=== PATIENT | male | born 1965 | race Caucasian/White ===

== ENCOUNTER → 2017-04-28 | Outpatient (RCR) | payer OTHER, SELFPAY | LOC: PT 03-30 15:10 | PROVIDERS: Visit Provider Physical Medicine & Rehabilitation | DX: M79.1 Myalgia (principal); G44.89 Other headache syndrome | CPT/HCPCS: 97010; 97014; 97035; 97110; 97112; G0283 ==

== ENCOUNTER 2017-06-21 10:54 | Outpatient (CLI) | payer MEDICAID, SELFPAY ==
[2017-06-21] VITALS (21 sets, daily range): BP systolic 113–141; BP diastolic 55–85; PULSE 105–118; RESP 18–20; TEMP 36.7–37.1; O2SAT 94–99; BMI 45.8
[2017-06-21 11:54] LABS: Basophils % 0.2 % (0.1-2.0); Eosinophils # 0.1 K/mm3 (0.0-0.4); Eosinophils % 0.4 % (0.1-12.0); Lymphocytes # 0.7 K/mm3 (0.7-4.5); Lymphocytes % 6.9 K/mm3 (10-50); Mean Corpuscular HGB Conc 29.5 g/dL (31.8-35.4); Mean Corpuscular Hemoglobin 23.5 pg (27.0-31.2); Mean Corpuscular Volume 79.6 fl (80-94); Mean Platelet Volume 9.1 fl (7.4-10.4); Monocytes # 0.6 K/mm3 (0.1-1.0); Monocytes % 5.9 % (1.7-9.3); Neutrophils % 86.4 % (37.0-80.0); Platelet Count 88 K/mm3 (142-424); Red Blood Count 2.62 M/mm3 (4.60-6.20); Red Cell Distribution Width 17.6 % (11.5-17.5); White Blood Count 10.4 K/mm3 (4.8-10.8)
[2017-06-21 12:07] LABS: Hematocrit 20.9 % (42.0-52.0); Hemoglobin 6.2 g/dL (14.1-18.0)
[2017-06-21 12:08] LABS: MANUAL DIFFERENTIAL MANUAL DIFFERENTIAL (MANUAL DIFF)
[2017-06-21 13:10] LABS: Lymphocytes % 9 % (10-50); Monocytes % 1 % (2-9); Neutrophils % 90 % (42-76); Total Cells Counted 100
[2017-06-21 13:12] LABS: Hypochromasia 2+; Platelet Estimate Slight Decrease
[2017-06-21 18:03] LABS: Hematocrit 24.8 % (42.0-52.0)
--- NOTE | 2017-06-21 18:11 | PC.NURSE ---
1 hour post infusion h&h drawn and sent to lab
[2017-06-21 18:18] LABS: Hemoglobin 7.8 g/dL (14.1-18.0)
--- NOTE | 2017-06-21 18:29 | PC.NURSE ---
Dr vigil notified of critical values, no new orders received. Dr Vigil stated patient was fine to be discharged home-[id number] Hgb-7.8 Hct-24.8 post infusion H&H
== END 2017-06-21 17:55 | disposition home or self-care (01) ==
PROVIDERS: PCP Internal Medicine; Visit Provider Internal Medicine
DX: D64.9 Anemia, unspecified (principal)
CPT/HCPCS: 36430; 85007; 85014; 85018; 85025; 86850; P9016

== ENCOUNTER 2017-06-27 10:30 | Outpatient (CLI) | payer MEDICAID, SELFPAY ==
[2017-06-27] VITALS (19 sets, daily range): BP systolic 128–158; BP diastolic 67–83; PULSE 66–116; RESP 18–20; TEMP 35.9–37.2; O2SAT 96–99; BMI 47.2
[2017-06-27 11:24] LABS: Hematocrit 24.3 % (42.0-52.0)
[2017-06-27 11:27] LABS: Hemoglobin 7.1 g/dL (14.1-18.0)
--- NOTE | 2017-06-27 14:01 | PC.NURSE ---
pt eating ch. sandwich and chips, tolerating well
[2017-06-27 17:35] LABS: Hematocrit 28.1 % (42.0-52.0)
[2017-06-27 17:42] LABS: Hemoglobin 8.7 g/dL (14.1-18.0)
== END 2017-06-27 17:43 | disposition home or self-care (01) ==
LOC: INF 13:33
PROVIDERS: PCP Internal Medicine; Visit Provider Internal Medicine
DX: D64.9 Anemia, unspecified (principal); K74.60 Unspecified cirrhosis of liver
CPT/HCPCS: 36430; 85014; 85018; 86850; P9016

== ENCOUNTER → 2017-07-05 09:50 | Outpatient (REF) | payer MEDICAID, SELFPAY ==
[2017-07-05 10:02] LABS: Basophils # 0.1 K/mm3 (0-0.2); Basophils % 0.9 % (0.1-2.0); Eosinophils # 0.1 K/mm3 (0.0-0.4); Eosinophils % 1.8 % (0.1-12.0); Hematocrit 30.5 % (42.0-52.0); Hemoglobin 9.2 g/dL (14.1-18.0); Lymphocytes # 0.8 K/mm3 (0.7-4.5); Mean Corpuscular HGB Conc 30.2 g/dL (31.8-35.4); Mean Corpuscular Hemoglobin 26.1 pg (27.0-31.2); Mean Corpuscular Volume 86.4 fl (80-94); Mean Platelet Volume 9.6 fl (7.4-10.4); Monocytes # 0.5 K/mm3 (0.1-1.0); Monocytes % 9.9 % (1.7-9.3); Neutrophils # 3.6 K/mm3 (1.8-7.8); Neutrophils % 71.4 % (37.0-80.0); Red Blood Count 3.52 M/mm3 (4.60-6.20); Red Cell Distribution Width 23.7 % (11.5-17.5); White Blood Count 5.1 K/mm3 (4.8-10.8)
[2017-07-05 10:50] LABS: Platelet Count 87 K/mm3 (142-424)
== END ==
LOC: LAB 09:50
PROVIDERS: Visit Provider Internal Medicine
DX: K70.30 Alcoholic cirrhosis of liver without ascites (principal); K70.10 Alcoholic hepatitis without ascites; K72.90 Hepatic failure, unspecified without coma; D64.9 Anemia, unspecified
CPT/HCPCS: 36415; 85025

== ENCOUNTER → 2017-07-19 12:59 | Outpatient (CLI) | payer MEDICAID, SELFPAY | PROVIDERS: PCP Internal Medicine; Visit Provider Internal Medicine | DX: M79.605 Pain in left leg (principal); M79.604 Pain in right leg; R60.0 Localized edema | CPT/HCPCS: 93970 ==

== ENCOUNTER → 2017-08-07 11:26 | Outpatient (CLI) | payer MEDICAID, SELFPAY ==
[2017-08-07 11:41] LABS: Basophils % 0.5 % (0.1-2.0); Eosinophils # 0.1 K/mm3 (0.0-0.4); Hematocrit 38.2 % (42.0-52.0); Hemoglobin 11.8 g/dL (14.1-18.0); Lymphocytes # 0.9 K/mm3 (0.7-4.5); Lymphocytes % 20.1 K/mm3 (10-50); Mean Corpuscular HGB Conc 30.8 g/dL (31.8-35.4); Mean Corpuscular Hemoglobin 30.7 pg (27.0-31.2); Mean Corpuscular Volume 99.9 fl (80-94); Mean Platelet Volume 8.6 fl (7.4-10.4); Monocytes # 0.5 K/mm3 (0.1-1.0); Monocytes % 11.3 % (1.7-9.3); Neutrophils # 3.2 K/mm3 (1.8-7.8); Neutrophils % 67.1 % (37.0-80.0); Platelet Count 78 K/mm3 (142-424); Red Blood Count 3.82 M/mm3 (4.60-6.20); White Blood Count 4.7 K/mm3 (4.8-10.8)
[2017-08-07 12:22] LABS: Alanine Aminotransferase 38 U/L (12-78); Albumin Level 2.7 gm/dL (3.4-5.0); Albumin/Globulin Ratio 0.5 (1.1-1.8); Alkaline Phosphatase 149 U/L (46-116); Anion Gap 12.6 mEq/L (5-15); Aspartate Amino Transferase 91 U/L (15-37); Bilirubin,Total 3.2 mg/dL (0.2-1.0); Blood Urea Nitrogen 8 mg/dL (7-18); Carbon Dioxide 27 mmol/L (21.0-32.0); Chloride 102 mmol/L (98-107); Estimated Glomerular Filt Rate 102 ml/min (>60); GFR (African American) 123 ML/MIN (>60); Globulin 5.3 gm/dl (1.3-3.2); Potassium 3.6 mmoL/L (3.5-5.1); Sodium 138 mmol/L (136-145)
[2017-08-07 12:29] LABS: Glucose 124 mg/dL (74-106)
== END ==
PROVIDERS: Visit Provider Internal Medicine
DX: K74.60 Unspecified cirrhosis of liver (principal); R60.9 Edema, unspecified; I10 Essential (primary) hypertension; D64.9 Anemia, unspecified
CPT/HCPCS: 36415; 80053; 85025

== ENCOUNTER → 2017-10-04 10:09 | Outpatient (CLI) | payer MEDICAID, SELFPAY ==
[2017-10-04 10:38] LABS: Basophils # 0.1 K/mm3 (0-0.2); Basophils % 0.9 % (0.1-2.0); Eosinophils # 0.1 K/mm3 (0.0-0.4); Eosinophils % 2.6 % (0.1-12.0); Hematocrit 44.5 % (42.0-52.0); Hemoglobin 14.2 g/dL (14.1-18.0); Lymphocytes # 0.8 K/mm3 (0.7-4.5); Lymphocytes % 17.1 K/mm3 (10-50); Mean Corpuscular HGB Conc 31.9 g/dL (31.8-35.4); Mean Corpuscular Volume 106.4 fl (80-94); Mean Platelet Volume 8.7 fl (7.4-10.4); Monocytes # 0.5 K/mm3 (0.1-1.0); Monocytes % 9.3 % (1.7-9.3); Neutrophils # 3.5 K/mm3 (1.8-7.8); Neutrophils % 70.1 % (37.0-80.0); Platelet Count 62 K/mm3 (142-424); Red Blood Count 4.18 M/mm3 (4.60-6.20); Red Cell Distribution Width 15.2 % (11.5-17.5); White Blood Count 4.9 K/mm3 (4.8-10.8)
[2017-10-04 10:44] LABS: Ammonia 42 umol/L (19-54)
[2017-10-04 11:58] LABS: Hemoglobin A1C 5.1 % (0.0-7.0)
[2017-10-04 12:03] LABS: Alanine Aminotransferase 58 U/L (12-78); Albumin Level 2.8 gm/dL (3.4-5.0); Albumin/Globulin Ratio 0.6 (1.1-1.8); Alkaline Phosphatase 130 U/L (46-116); Anion Gap 11.1 mEq/L (5-15); Aspartate Amino Transferase 111 U/L (15-37); Bilirubin,Total 4.7 mg/dL (0.2-1.0); Blood Urea Nitrogen 8 mg/dL (7-18); Carbon Dioxide 30 mmol/L (21.0-32.0); Chloride 103 mmol/L (98-107); Chol/HDL Ratio 3.9 (1-3.5); Cholesterol 180 mg/dL (140-200); Creatinine,Serum 0.85 mg/dL (0.70-1.30); Estimated Glomerular Filt Rate 95 ml/min (>60); GFR (African American) 115 ML/MIN (>60); Globulin 4.7 gm/dl (1.3-3.2); Glucose 117 mg/dL (74-106); HDL Cholesterol 46 mg/dL (27-67); LDL Cholesterol 119 mg/dL (0-130); Potassium 4.1 mmoL/L (3.5-5.1); Sodium 140 mmol/L (136-145); Total Protein,Serum 7.5 gm/dL (6.4-8.2); Triglycerides 75 mg/dL (30-200); VLDL Cholesterol 15 mg/dL (0-40)
== END ==
PROVIDERS: Visit Provider Internal Medicine
DX: K74.60 Unspecified cirrhosis of liver (principal); K72.90 Hepatic failure, unspecified without coma; E11.42 Type 2 diabetes mellitus with diabetic polyneuropathy; I10 Essential (primary) hypertension; E78.5 Hyperlipidemia, unspecified; D64.9 Anemia, unspecified
CPT/HCPCS: 36415; 80053; 80061; 82140; 83036; 85025

== ENCOUNTER → 2017-12-08 10:28 | Outpatient (CLI) | payer MEDICAID, SELFPAY ==
--- NOTE | 2017-12-08 10:47 | XR_ITS ---
XR chest 2V HISTORY: ITS.REASON: DYSPNEA,KARRIE II DM,CIRRHROSIS ORDERING PHYSICIAN: Reuben Holder PATIENT AGE: 52 years COMPARISON: None FINDINGS: There is mild cardiomegaly without failure. No lobar consolidation or collapse evident. No acute bony anomalies. IMPRESSION: Cardiomegaly otherwise
[2017-12-08 10:52] LABS: Basophils % 0.6 % (0.1-2.0); Eosinophils # 0.1 K/mm3 (0.0-0.4); Eosinophils % 2.5 % (0.1-12.0); Hematocrit 43.3 % (42.0-52.0); Hemoglobin 14.1 g/dL (14.1-18.0); Lymphocytes # 0.7 K/mm3 (0.7-4.5); Lymphocytes % 13.3 K/mm3 (10-50); Mean Corpuscular HGB Conc 32.5 g/dL (31.8-35.4); Mean Corpuscular Volume 107.5 fl (80-94); Mean Platelet Volume 8.1 fl (7.4-10.4); Monocytes # 0.4 K/mm3 (0.1-1.0); Monocytes % 8.6 % (1.7-9.3); Neutrophils # 3.9 K/mm3 (1.8-7.8); Neutrophils % 75.1 % (37.0-80.0); Platelet Count 80 K/mm3 (142-424); Red Blood Count 4.03 M/mm3 (4.60-6.20); Red Cell Distribution Width 14.7 % (11.5-17.5); White Blood Count 5.2 K/mm3 (4.8-10.8)
[2017-12-08 11:00] LABS: Hemoglobin A1C 5.3 % (0.0-7.0)
[2017-12-08 11:05] LABS: Alanine Aminotransferase 50 U/L (12-78); Albumin Level 2.6 gm/dL (3.4-5.0); Albumin/Globulin Ratio 0.5 (1.1-1.8); Alkaline Phosphatase 140 U/L (46-116); Anion Gap 10.2 mEq/L (5-15); Aspartate Amino Transferase 81 U/L (15-37); Bilirubin,Total 3.9 mg/dL (0.2-1.0); Blood Urea Nitrogen 9 mg/dL (7-18); Calcium 8.8 mg/dL (8.5-10.1); Carbon Dioxide 28 mmol/L (21.0-32.0); Chloride 101 mmol/L (98-107); Estimated Glomerular Filt Rate 70 ml/min (>60); GFR (African American) 85 ML/MIN (>60); Globulin 4.9 gm/dl (1.3-3.2); Glucose 182 mg/dL (74-106); Potassium 4.2 mmoL/L (3.5-5.1); Sodium 135 mmol/L (136-145); Total Protein,Serum 7.5 gm/dL (6.4-8.2)
[2017-12-08 11:08] LABS: Ammonia 54 umol/L (19-54)
== END ==
PROVIDERS: Visit Provider Internal Medicine
DX: R06.09 Other forms of dyspnea (principal); E11.42 Type 2 diabetes mellitus with diabetic polyneuropathy; K74.60 Unspecified cirrhosis of liver; I10 Essential (primary) hypertension
CPT/HCPCS: 36415; 71046; 80053; 82140; 83036; 85025

== ENCOUNTER → 2017-12-14 12:54 | Outpatient (CLI) | payer MEDICAID, SELFPAY ==
--- NOTE | 2017-12-14 13:15 | CA_ITS ---
PROCEDURE: 2-D M-mode and color Doppler study INDICATIONS FOR THE TEST: Chest pain COPD Heart Murmur Tobacco Smoking Palpitations+ Fatigue Syncope Edema+ Hypertension Diabetes Mellitus Rheumatic Fever SOB [place]+Obesity+Hyperlipidemia Family History HD Additional History PATIENT INFORMATION HEIGHT: 66 WEIGHT: 250 GENDER: Male B/P: 146/89 2-D/M-MODE INTERPRETATION: 2-D MEASUREMENTS OBSERVED VALUES IN CMS Right Ventricular Dimension (RVDd) 2.9 Interventricular Septum (Thickness)(IVsd) 1.0 Left Ventricular Internal Dimensions(LVIDd) 5.7 Left Ventricular Posterior Wall (Thickness)(LVPWd) 1.0 Aortic Root 3.3 Aortic Cusp Separation 2.2 Left Atrial Dimensions (LAD) 4.1 2D 1. Technically difficult study because of the patient's factor and poor acoustic windows 2. The left atrium is mildly enlarged, left ventricle is normal size, visually estimated ejection fraction 55% with no obvious regional wall motion abnormality. 3. The right atrium and right ventricle are mildly enlarged with normal contractility. 4. The mitral and tricuspid valve leaflets are grossly normal. 5. The aortic valve is minimally thickened and fibrosed. 6. No significant pericardial effusion noted. DOPPLER INTERROGATION: Doppler interrogation of the aortic, mitral and tricuspid valvular presence of mild mitral and tricuspid regurgitation, tricuspid and jet velocity is insufficient for calculation of the right ventricular systolic pressure, diastolic parameters are inconclusive. CONCLUSION: 1. Mildly enlarged left atrium, normal left ventricular size, visually estimated ejection fraction 55% with no obvious regional wall motion abnormality, diastolic parameters are inconclusive. 2. Mildly enlarged right ventricle with normal contractility. 3. Mild mitral and tricuspid regurgitation 4. No significant pericardial effusion noted.
[2017-12-14 14:12] VITALS: PULSE 70
== END ==
PROVIDERS: PCP Internal Medicine; Visit Provider Internal Medicine
DX: R06.09 Other forms of dyspnea (principal); R60.0 Localized edema
CPT/HCPCS: 93306; 94060; 94640; 94727; 94729

== ENCOUNTER → 2018-01-05 12:21 | Outpatient (CLI) | payer MEDICAID, SELFPAY ==
[2018-01-05 13:11] LABS: INR 1.17 (0.9-1.1)
[2018-01-05 13:15] LABS: Basophils % 0.6 % (0.1-2.0); Eosinophils # 0.1 K/mm3 (0.0-0.4); Eosinophils % 2.6 % (0.1-12.0); Hematocrit 44.4 % (42.0-52.0); Hemoglobin 14.5 g/dL (14.1-18.0); Lymphocytes # 0.7 K/mm3 (0.7-4.5); Lymphocytes % 12.1 K/mm3 (10-50); Mean Corpuscular HGB Conc 32.7 g/dL (31.8-35.4); Mean Corpuscular Hemoglobin 34.9 pg (27.0-31.2); Mean Corpuscular Volume 106.7 fl (80-94); Mean Platelet Volume 7.9 fl (7.4-10.4); Monocytes # 0.4 K/mm3 (0.1-1.0); Monocytes % 7.6 % (1.7-9.3); Neutrophils # 4.3 K/mm3 (1.8-7.8); Neutrophils % 77.1 % (37.0-80.0); Platelet Count 61 K/mm3 (142-424); Red Blood Count 4.17 M/mm3 (4.60-6.20); Red Cell Distribution Width 14.1 % (11.5-17.5); White Blood Count 5.6 K/mm3 (4.8-10.8)
[2018-01-05 13:46] LABS: Alanine Aminotransferase 51 U/L (12-78); Albumin Level 2.9 gm/dL (3.4-5.0); Albumin/Globulin Ratio 0.7 (1.1-1.8); Alkaline Phosphatase 149 U/L (46-116); Aspartate Amino Transferase 78 U/L (15-37); Bilirubin,Total 5.4 mg/dL (0.2-1.0); Blood Urea Nitrogen 8 mg/dL (7-18); Calcium 8.6 mg/dL (8.5-10.1); Carbon Dioxide 29 mmol/L (21.0-32.0); Chloride 105 mmol/L (98-107); Estimated Glomerular Filt Rate 102 ml/min (>60); GFR (African American) 123 ML/MIN (>60); Globulin 4.4 gm/dl (1.3-3.2); Glucose 108 mg/dL (74-106); Sodium 141 mmol/L (136-145); Total Protein,Serum 7.3 gm/dL (6.4-8.2)
== END ==
PROVIDERS: PCP Internal Medicine; Visit Provider Internal Medicine Gastroenterology
DX: K70.30 Alcoholic cirrhosis of liver without ascites (principal)
CPT/HCPCS: 36415; 80053; 82105; 85025; 85610

== ENCOUNTER 2018-03-23 17:26 | Inpatient (IN) ==
--- NOTE | 2018-03-23 17:39 | Emergency Department Note ---
ED Disposition Clinical Impression: Alcoholism Alcohol intoxication Qualifiers: Complication of substance-induced condition: with unspecified complication Qualified Code(s): F10.929 - Alcohol use, unspecified with intoxication, unspecified Alcoholic cirrhosis Qualifiers: Ascites presence: unspecified Qualified Code(s): K70.30 - Alcoholic cirrhosis of liver without ascites Rib contusion Qualifiers: Encounter type: initial encounter Laterality: right Qualified Code(s): S20.211A - Contusion of right front wall of thorax, initial encounter Disposition: Still a Patient Condition on Discharge: Serious Referrals: Provider,Referral, [Referring] - - Critical Care Critical Care Time: No Attestation: On , the high probability of a clinically significant, sudden or life threatening deterioration of the following system(s) required my full and direct attention, intervention and personal management. The time I documented below is in addition to time spent performing reported procedures but includes the following listed in this critical care notation. Medical Decision Making - Marcus Inquiry Pt receiving controlled substance: No Vital Signs: 03/23/18 17:26 03/23/18 18:09 03/23/18 19:17 Temperature 98.2 F Temperature Source Oral Pulse Rate [Right Brachial] 111 H 102 H 111 H Respiratory Rate 22 22 Blood Pressure [Right Arm] 112/69 119/80 129/75 Blood Pressure Mean [Right Arm] 83 93 93 Blood Pressure Source [Right Arm] Automatic Cuff Automatic Cuff Automatic Cuff Blood Pressure Position [Right Arm] Supine Supine Sitting 02 Sat by Pulse Oximetry 94 L 95 93 L Oxygen Delivery Method Room Air Room Air Room Air Oxygen Flow Rate (LPM) 03/23/18 19:21 Temperature Temperature Source Pulse Rate [Right Brachial] Respiratory Rate Blood Pressure [Right Arm] Blood Pressure Mean [Right Arm] Blood Pressure Source [Right Arm] Blood Pressure Position [Right Arm] 02 Sat by Pulse Oximetry 93 L Oxygen Delivery Method Room Air Oxygen Flow Rate (LPM) 2 - Lab Data Lab Results 03/23/18 17:35: WBC 8.4, RBC 3.87 L, Hgb 13.3 L, Hct 41.6 L, MCV 107.4 H, MCH 34.3 H, MCHC 32.0, RDW 15.8, Plt Count 60 L, MPV 8.4, Neut % (Auto) 84.4 H, Lymph % (Auto) 7.6 L, Cross % (Auto) 6.9, Eos % (Auto) 0.7, Baso % (Auto) 0.5, Neut # (Auto) 7.1, Lymph # (Auto) 0.6 L, [place] # (Auto) 0.6, Eos # (Auto) 0.1, Baso # (Auto) 0.0 03/23/18 17:35: PT 13.8 H, INR 1.35 H 03/23/18 17:35: Sodium 141, Potassium 3.6, Chloride 104, Carbon Dioxide 29, Anion Gap 11.6, BUN 7, Creatinine 0.72, Estimated Creat Clear 192, Estimated GFR 115, Est GFR ( Amer) 139, Glucose 119 H, Calcium 7.5 L, Total Bilirubin 10.3 H, Direct Bilirubin 7.1 H, Indirect Bilirubin 3.2 H, AST 266 H, ALT 92 H, Alkaline Phosphatase 271 H, Total Protein 7.6, Albumin 2.3 L, Lipase 182, Salicylates < 0.2 L, Acetaminophen 0 L, Plasma/Serum Alcohol 341 H* 03/23/18 17:35: Ammonia 62 H 03/23/18 17:35: Total Creatine Kinase 931 H*, CK-MB (CK-2) 18.9 H*, CK-MB (CK-2) Rel Index 2.0, Troponin I < 0.02 03/23/18 17:38: B-Natriuretic Peptide 37 Result diagrams: 03/23/18 17:35 03/23/18 17:35 Orders (Tests/Meds): ED MEDICATIONS Generic Name Dose Route Start Last Admin Trade Name Freq PRN Reason Stop Dose Admin Multivitamins 10 ml/ Thiamine 1,015 mls @ 150 mls/hr 03/23/18 17:45 03/23/18 19:16 HCl 100 mg/ Magnesium Sulfate IV 03/24/18 00:30 150 mls/hr 2 gm/ Lactated Ringer's .[id number] SHERWIN Administration Discontinued Medications Generic Name Dose Route Start Last Admin Trade Name Freq PRN Reason Stop Dose Admin Folic Acid 1 mg 03/23/18 17:42 03/23/18 19:16 Folic Acid 1mg Tablet PO 03/23/18 17:43 1 mg ONCE ONE Administration Oxazepam 30 mg 03/23/18 19:54 Serax 15mg Capsule PO 03/23/18 19:55 ONCE ONE ORDERS Category Date Time Status CT head/brain wo con Stat Cat Scan 03/23/18 17:40 Taken XR chest portable Stat Exams 03/23/18 17:40 Taken XR ribs RT 2V Stat Exams 03/23/18 17:53 Taken Drug Screen,Urine Stat Lab 03/23/18 17:41 Ordered Urinalysis and Microscopic Stat Lab 03/23/18 17:41 Ordered - Radiology Data #1 Image(s): Chest (+ Ribs) Image Reviewed: Yes I reviewed the patient's radiology image Irregular cortex of right seventh rib anteriorly, but does not appear acute. Cephalization of vasculature. No effusions. No pneumothorax seen. - CT Data CT Scan: Head Time Received: 19:[address] Reviewed: Yes: I have viewed the radiologist's interpretation Findings Narrative: CT scan interpreted by [facility] radiologist. Faxed report received and reviewed: No acute intracranial findings. Probable chronic paranasal sinusitis without air-fluid levels. Possible chronic left mastoid effusion unchanged since . - ECG Data Tracing #1 EKG interpreted by Michael Watters MD: Rhythm: sinus tachycardia Rate: 110 Charlo: Left Ectopy: none Conduction: Right bundle branch block ST Segment Changes: none T Wave Changes: none Q Waves: none No evidence of acute ischemia or injury Baseline artifact and wander present, but I consider the EKG adequate for accurate interpretation. - Physician Consults Physician Consulted: David Vigil Time: 19:40 Reason -: Admission Comment/Response: Agrees to admit the patient to the hospital. We discussed the patient's clinical information, including history, exam, laboratory and radiology results and ED course. Per hospital procedure, I will write temporary bridge inpatient orders on the patient. Specific orders requested by the admitting physician: Withdrawal protocol, first dose of oxazepam 30 mg in the emergency department General Adult HPI - General Stated complaint: AMS Time Seen by Provider: 03/23/18 17:39 - History of Present Illness HPI narrative: Brought in by son. History obtained from his son primarily as the patient is a poor historian. The patient lives alone, he has a history of alcoholic cirrhosis. He still drinks. His son believes that he is seen at [facility] a couple of times a month. Patient states the last time he had a drink of alcohol was 2 days ago. Son has not been able to get hold of him for 2 days so therefore went to his house today. He was just about to break into her window when the patient came to the door. He was ambulatory. His son says that he was more unsteady on his feet than usual, however. Also seems more confused than usual. Apparently has fallen a couple of times recently. Complains of pain in his back and has a purple ecchymosis in his right infrascapular area which he locates as the site of pain. He is normally jaundiced, but son states that he looks more jaundiced than usual. - Related Data Home Medications Medication Instructions Recorded Confirmed Aspirin [Aspir-Low] 81 mg PO DAILY 09/09/17 09/09/17 Ferrous Sulfate 325 mg PO DAILY 09/09/17 03/23/18 Fluticasone Propionate [Flonase 2 spr NS DAILY 09/09/17 09/09/17 50mcg nasal spray 16gm] Furosemide [Furosemide 40MG tAB] 40 mg PO DAILY 09/09/17 03/23/18 Lactulose [Lactulose 10gm/15ml 10 gm PO DAILY 09/09/17 09/09/17 Oral Soln] Magnesium Oxide [Mag-Ox 400mg Tab] 400 mg PO DAILY 09/09/17 03/23/18 Oxazepam [Serax 10mg Capsule] 10 mg PO TID PRN 09/09/17 03/23/18 Pantoprazole Sodium [Pantoprazole 40 mg PO DAILY 09/09/17 03/23/18 20mg Tab] Sertraline HCl 25 mg PO DAILY 09/09/17 03/23/18 Spironolactone [Spironolactone 100 mg PO BID 09/09/17 03/23/18 25mg Tab] Albuterol Sulfate [Albuterol HFA 2 puffs INHALATION Q6HP PRN 03/23/18 03/23/18 Inhaler] Montelukast Sodium 5 mg PO DAILY 03/23/18 03/23/18 Allergies Allergy/AdvReac Type Severity Reaction Status Date / Time No Known Allergies Allergy Verified 12/11/17 08:42 [facility] History I have reviewed the patient's past medical history: Yes - Social History Smoking Status: Never smoker Alcohol Intake: current Alcohol Intake Frequency:: 0-2 drinks per day ROS Obtained: Yes unobtainable due to mental status Physical Exam - General General appearance: alert, in no apparent distress Comment: Jaundiced, scleral icterus. Tremulous. Sweet fruity odor to breath. - Head Head exam: atraumatic, normocephalic - Eye Eye exam: Present: PERRL, EOMI, jaundice - ENT ENT exam: Present: mucous membranes moist - Neck Neck exam: Present: full ROM. Absent: tenderness - Chest Chest inspection: Present: symmetric chest wall rise - Respiratory Respiratory exam: Present: normal lung sounds bilaterally. Absent: respiratory distress - Cardiovascular Cardiovascular exam: Present: normal rhythm, tachycardia, normal heart sounds - Abdominal Exam Abdominal exam: Present: soft. Absent: distention, tenderness - Extremities Exam Extremities exam: Present: other (Severe venous stasis changes pretibial aspect of lower leg bilaterally with stasis edema) - Back Exam Back 1 view image: 1 - Tender, purple ecchymosis - Neurological Exam Neurological exam: Present: alert, CN II-XII intact, other (Oriented to person and place). Absent: motor sensory deficit - Skin Skin exam: Present: warm, dry
[2018-03-23 18:06] LABS: Basophils % 0.5 % (0.1-2.0); Eosinophils # 0.1 K/mm3 (0.0-0.4); Eosinophils % 0.7 % (0.1-12.0); Hematocrit 41.6 % (42.0-52.0); Hemoglobin 13.3 g/dL (14.1-18.0); Lymphocytes # 0.6 K/mm3 (0.7-4.5); Lymphocytes % 7.6 % (10-50); Mean Corpuscular Hemoglobin 34.3 pg (27.0-31.2); Mean Corpuscular Volume 107.4 fl (80-94); Mean Platelet Volume 8.4 fl (7.4-10.4); Monocytes # 0.6 K/mm3 (0.1-1.0); Monocytes % 6.9 % (1.7-9.3); Neutrophils # 7.1 K/mm3 (1.8-7.8); Neutrophils % 84.4 % (37.0-80.0); Platelet Count 60 K/mm3 (142-424); Red Blood Count 3.87 M/mm3 (4.60-6.20); Red Cell Distribution Width 15.8 % (11.5-17.5); White Blood Count 8.4 K/mm3 (4.8-10.8)
[2018-03-23 18:10] LABS: INR 1.35 (0.9-1.1); Prothrombin Time 13.8 seconds (9.4-11.8)
[2018-03-23 18:19] LABS: Alanine Aminotransferase 92 U/L (12-78); Albumin Level 2.3 gm/dL (3.4-5.0); Alkaline Phosphatase 271 U/L (46-116); Anion Gap 11.6 mEq/L (5-15); Aspartate Amino Transferase 266 U/L (15-37); Bilirubin,Direct 7.1 mg/dL (0.0-0.2); Bilirubin,Indirect 3.2 mg/dL (0.0-0.9); Bilirubin,Total 10.3 mg/dL (0.2-1.0); Blood Urea Nitrogen 7 mg/dL (7-18); Calcium 7.5 mg/dL (8.5-10.1); Carbon Dioxide 29 mmol/L (21.0-32.0); Chloride 104 mmol/L (98-107); Glucose 119 mg/dL (74-106); Lipase 182 u/L (73-393); Potassium 3.6 mmoL/L (3.5-5.1); Sodium 141 mmol/L (136-145); Total Protein,Serum 7.6 gm/dL (6.4-8.2)
[2018-03-23 18:24] LABS: Creatine Kinase 931 U/L (39-308)
[2018-03-23 18:30] LABS: Ethyl Alcohol 341 mg/dL (0-99)
[2018-03-23 18:32] LABS: Acetaminophen 0 ug/mL (10-30); Salicylate < 0.2 mg/dL (2.8-20.0)
[2018-03-23 21:01] LABS: Phosphorous 2.6 mg/dL (2.4-4.9)
[2018-03-24 09:29] LABS: INR 1.42 (0.9-1.1); Prothrombin Time 14.5 seconds (9.4-11.8)
[2018-03-24 09:32] LABS: Albumin Level 1.8 gm/dL (3.4-5.0); Albumin/Globulin Ratio 0.4 (1.1-1.8); Anion Gap 11.7 mEq/L (5-15); Bilirubin,Total 10.4 mg/dL (0.2-1.0); Calcium 7.2 mg/dL (8.5-10.1); Globulin 4.3 gm/dl (1.3-3.2); Total Protein,Serum 6.1 gm/dL (6.4-8.2)
[2018-03-24 09:33] LABS: Potassium 3.7 mmoL/L (3.5-5.1)
--- NOTE | 2018-03-24 11:35 | History & Physical Report ---
*Admission Date: 03/23/18 *Chief complaint: Alcohol withdrawal, intoxication *History of present illness: Mr. Camacho is a 52-year-old male who was brought in by his nephew due to concern for alcohol intoxication and withdrawal. Past medical history for CHF and diabetes. Patient reports he drinks approximately 12 beers a day however blood alcohol level on presentation approximately 350 concerning for significantly larger oral intake daily. She will assessment in the ER with concern for withdrawal symptoms, intoxication, liver injury, elevated CK. Initiated withdrawal protocol and received a rally pack, IV fluids, loading dose of oxazepam. Admitted to medicine for further management. Patient this morning eating breakfast on assessment. Reports his an alcoholic that is struggled with recovery in the past currently in AA however fell off the wagon about 6 months ago. Has never had withdrawal symptoms, seizures, DTs per his report. Denies chest pain, palpitations, shortness of breath. Reports some mild confusion. Denies any abdominal pain or nausea. Noted to be quite shaky during interview. Review of patient's CIWA scores overnight have scores of 11 and 14. Currently receiving scheduled oxazepam of 30 mg however still having impressive scores. [facility] History I have reviewed the patient's past medical history: Yes Medical History: Reports:: Congestive Heart Failure, Diabetes Mellitus Type 2 Denies:: Cancer, Diabetes Mellitus Type 1, Internal Pacemaker, MRSA Other Surgeries: No: Pacemaker Amputation: No Fractures: No - *Social History Educational Level: Completed High School Smoking Status: Never smoker Alcohol Intake: current Alcohol Intake Frequency:: 3 or more drinks per day Occupational Status: unemployed Household Members: none - Psychiatric History Expresses thoughts of harming self/others: None Suicide Plan Description: No Plan *Family Hx:: Unable to obtain Review of Systems - Review of Systems Review of systems:: pertinent systems reviewed and negative unless documented below Meds Home Medications Medication Instructions Recorded Confirmed Type Ferrous Sulfate 325 mg PO DAILY 09/09/17 03/24/18 History Fluticasone Propionate [Flonase 2 spr NS DAILY 09/09/17 03/24/18 History 50mcg nasal spray 16gm] Furosemide [Furosemide 40MG tAB] 40 mg PO DAILY 09/09/17 03/24/18 History Lactulose [Lactulose 10gm/15ml 10 gm PO DAILY 09/09/17 09/09/17 History Oral Soln] Magnesium Oxide [Mag-Ox 400mg Tab] 400 mg PO DAILY 09/09/17 03/24/18 History Oxazepam [Serax 10mg Capsule] 10 mg PO TID PRN 09/09/17 03/24/18 History Pantoprazole Sodium [Pantoprazole 40 mg PO DAILY 09/09/17 03/24/18 History 20mg Tab] Sertraline HCl 25 mg PO DAILY 09/09/17 03/24/18 History Spironolactone [Spironolactone 100 mg PO BID 09/09/17 03/24/18 History 25mg Tab] Albuterol Sulfate [Albuterol HFA 2 puffs INHALATION Q6HP PRN 03/23/18 03/23/18 History Inhaler] Montelukast Sodium 5 mg PO DAILY 03/23/18 03/24/18 History Allergies Allergy/AdvReac Type Severity Reaction Status Date / Time No Known Allergies Allergy Verified 03/24/18 08:08 Exam Vital signs and Labs for Last 24 Hours: Temp Pulse Resp BP Pulse Ox 98.9 F 115 H 20 151/74 H 92 L 03/24/18 08:00 03/24/18 08:00 03/24/18 08:00 03/24/18 08:00 03/24/18 08:00 Laboratory Results - last 24 hr 03/23/18 17:35: WBC 8.4, RBC 3.87 L, Hgb 13.3 L, Hct 41.6 L, MCV 107.4 H, MCH 34.3 H, MCHC 32.0, RDW 15.8, Plt Count 60 L, MPV 8.4, Neut % (Auto) 84.4 H, Lymph % (Auto) 7.6 L, [place] % (Auto) 6.9, Eos % (Auto) 0.7, Baso % (Auto) 0.5, Neut # (Auto) 7.1, Lymph # (Auto) 0.6 L, [place] # (Auto) 0.6, Eos # (Auto) 0.1, Baso # (Auto) 0.0 03/23/18 17:35: PT 13.8 H, INR 1.35 H 03/23/18 17:35: Sodium 141, Potassium 3.6, Chloride 104, Carbon Dioxide 29, Anion Gap 11.6, BUN 7, Creatinine 0.72, Estimated Creat Clear 192, Estimated GFR 115, Est GFR ( Amer) 139, Glucose 119 H, Calcium 7.5 L, Total Bilirubin 10.3 H, Direct Bilirubin 7.1 H, Indirect Bilirubin 3.2 H, AST 266 H, ALT 92 H, Alkaline Phosphatase 271 H, Total Protein 7.6, Albumin 2.3 L, Lipase 182, Salicylates < 0.2 L, Acetaminophen 0 L, Plasma/Serum Alcohol 341 H* 03/23/18 17:35: Ammonia 62 H 03/23/18 17:35: Total Creatine Kinase 931 H*, CK-MB (CK-2) 18.9 H*, CK-MB (CK-2) Rel Index 2.0, Troponin I < 0.02 03/23/18 17:35: APTT 33.2 03/23/18 17:35: Phosphorus 2.6, Magnesium 1.8 03/23/18 17:38: B-Natriuretic Peptide 37 03/24/18 05:30: Plasma/Serum Alcohol 208 H 03/24/18 09:00: PT 14.5 H, INR 1.42 H 03/24/18 09:00: Sodium 139, Potassium 3.7, Chloride 103, Carbon Dioxide 28, Anion Gap 11.7, BUN 10 D, Creatinine 0.75, Estimated Creat Clear 104, Estimated GFR 109, Est GFR ( Amer) 132, Glucose 192 H D, Calcium 7.2 L, Total Bilirubin 10.4 H, AST 206 H, ALT 75, Alkaline Phosphatase 208 H, Total Creatine Kinase 440 H D, Total Protein 6.1 L, Albumin 1.8 L D, Globulin 4.3 H, Albumin/Globulin Ratio 0.4 L 03/24/18 09:00: Ammonia 109 H I & O for Last 24 hours: Intake & Output 03/21/18 03/22/18 03/23/18 03/24/18 23:59 23:59 23:59 23:59 Intake Total 999 Balance 999 Weight 124.766 kg - *Routine HEENT Exam Head: Present: normocephalic, atraumatic Eye: Present: EOMI, conjunctival icterus, scleral injection ENT: Present: mucous membranes moist - *Routine Neck Exam Present: supple, full ROM - *Routine Respiratory Exam Present: CTA bilaterally, distant breath sounds, diminished air movement. Absent: accessory muscle use, wheezes - *Routine Cardiovascular Exam Present: RRR, Normal S1, Normal S2 - *Routine Abdominal Exam Present: soft Comments: Obese - *Routine Rectal Exam Patient deferred: visual exam - *Routine Exam Patient deferred: penile exam - *Routine Extremities Exam Present: edema. Absent: cyanosis, clubbing Comments: Bilateral chronic venous stasis changes on shins - *Routine Skin Exam Present: intact, erythema. Absent: cyanosis Comments: Origins bilateral with venous stasis changes - *Routine Neurological Exam Present: alert Tremor bilaterally, asterixis on exam. Assessment and Plan (1) Alcoholic hepatitis Current visit: Yes Status: Acute Category: Medical Code(s): K70.10 - Alcoholic hepatitis without ascites Patient presented with transaminases, intoxication, and suspected history of cirrhosis or previous disease. -Currently on alcohol withdrawal protocol with scheduled oxazepam, CIWA scores every 4 hours, current scores 11, 14. -Ready received a rally pack in ER -Additional concern for cirrhosis given elevated ammonia level, asterixis on exam. -Ultrasound right upper quadrant abdomen ordered to assess for scarring -Meld score of 19, if patient worsens, would consider referral to transplant [facility] for further management however patient would not be current candidate given active alcohol abuse -Maddrey's discriminant function of 19.5, no benefit at this time from steroids, will hold -Initiated lactulose to decrease ammonia level and help with mentation. -No history of GI bleed however patient would benefit from EGD pending found to assess for varices -We will need to establish with receiving supervisor after medically stable and discharged (2) Rhabdomyolysis Current visit: Yes Status: Acute Qualifiers: Encounter type: initial encounter Category: Medical Code(s): M62.82 - Rhabdomyolysis Unclear if due to trauma or not versus dehydration ox occasion. Improving with rehydration and treatment of intoxication (3) Alcohol intoxication Current visit: Yes Status: Acute Qualifiers: Complication of substance-induced condition: with unspecified complication Qualified Code(s): F10.929 - Alcohol use, unspecified with intoxication, unspecified Category: Medical Code(s): F10.929 - Alcohol use, unspecified with intoxication, unspecified Withdrawal protocol as per above. (4) Thrombocytopenia Current visit: No Status: Acute Category: Medical Code(s): D69.6 - Thrombocytopenia, unspecified Suspect due to cirrhosis, patient does not report cirrhosis however suspect he has history of this given alcohol use, thrombocyte, elevation of PT (5) Heart failure with preserved ejection fraction Current visit: Yes Status: Chronic Category: Medical Code(s): I50.30 - Unspecified diastolic (congestive) heart failure Echo reviewed from 12/14/17 showing EF greater than 55% however dilated right ventricle. -Monitor blood pressure, as needed -Optimize fluid status (6) Type II diabetes mellitus Current visit: Yes Status: Acute Qualifiers: Diabetes mellitus fci insulin use: unspecified fci insulin use status Diabetes mellitus complication status: without complication Qualified Code(s): E11.9 - Type 2 diabetes mellitus without complications Category: Medical Code(s): E11.9 - Type 2 diabetes mellitus without complications Sliding scale insulin as needed
--- NOTE | 2018-03-24 11:48 | Pharmacy Consult Notes ---
[facility] Pharmacy VTE Monitoring - Patient Demographics Admission date: 03/23/18 Report Date: 03/24/18 Time: 11:48 Allergies/Adverse Reactions: Patient Allergies No Known Allergies Allergy (Verified 03/24/18 08:08) Height: 1.68 m Weight: 124.766 kg Patient Problems: Current Active Problems (This Medical Record has been edited. Action required.) Alcohol intoxication (Acute) Alcoholism (Acute) Alcoholic cirrhosis (Acute) Rib contusion (Acute) Alcoholic hepatitis (Acute) Rhabdomyolysis (Acute) Heart failure with preserved ejection fraction (Chronic) - VTE Risk Labs: VTE Related Lab Results Hgb 13.3 g/dL (14.1-18.0) L 03/23/18 17:35 Hct 41.6 % (42.0-52.0) L 03/23/18 17:35 Plt Count 60 K/mm3 (142-424) L 03/23/18 17:35 PT 14.5 seconds (9.4-11.8) H 03/24/18 09:00 INR 1.42 (0.9-1.1) H 03/24/18 09:00 APTT 33.2 seconds (23.6-34.0) 03/23/18 17:35 BUN 10 mg/dL (7-18) D 03/24/18 09:00 Creatinine 0.75 mg/dL (0.70-1.30) 03/24/18 09:00 Estimated Creat Clear 104 mL/min (50-200) 03/24/18 09:00 Was VTE Risk Assessment Performed: Yes VTE Score: 6 VTE Risk Level: Very Low Risk - Prophylaxis VTE Prophylaxis Ordered?: Yes Types of VTE Prophylaxis: TEDS Knee High Location of Applied Device: Bilateral Lower Extremeties
--- NOTE | 2018-03-25 10:18 | Progress Note ---
Internal Medicine - PN: Subj *Date: 03/25/18 *Time: 08:25 Interval history: Patient remained hemodynamically stable overnight. CIWA scores improving in the past 24 hours. Continues to have tremor. Pleasant this morning though not fully oriented. Tolerating regular diet, having ample stools after initiation of lactulose. Exam Vital signs and Labs for Last 24 Hours: Temp Pulse Resp BP Pulse Ox 98.5 F 104 H 20 135/88 96 03/25/18 08:00 03/25/18 08:00 03/25/18 08:00 03/25/18 08:00 03/25/18 08:00 I & O for Last 24 hours: Intake & Output 03/22/18 03/23/18 03/24/18 03/25/18 23:59 23:59 23:59 23:59 Intake Total 1000 / 1000 3257 / 3257 720 / 720 Balance 1000 / 1000 3257 / 3257 720 / 720 Weight 124.766 kg 124.766 kg 126.552 kg - *Routine HEENT Exam Head: Present: normocephalic, atraumatic Eye: Present: PERRL, conjunctival icterus ENT: Present: mucous membranes moist Comments: Bilateral conjunctival injection, matting of right eyelid with concern for conjunctivitis - *Routine Neck Exam Present: supple. Absent: lymphadenopathy - *Routine Respiratory Exam Present: CTA bilaterally - *Routine Cardiovascular Exam Present: RRR - *Routine Abdominal Exam Present: soft, normoactive bowel sounds. Absent: tenderness - *Routine Rectal Exam Patient deferred: visual exam - *Routine Exam Patient deferred: penile exam - *Routine Extremities Exam Present: edema. Absent: cyanosis Comments: Bilateral erythema of shins consistent with venous stasis dermatitis - *Routine Skin Exam Present: warm, rash (Rash on shins as per above) - *Routine Neurological Exam Present: alert Still has bilateral asterixis, less prominent today Assessment and Plan (1) Alcoholic hepatitis Current visit: Yes Status: Acute Category: Medical Code(s): K70.10 - Alcoholic hepatitis without ascites (2) Rhabdomyolysis Current visit: Yes Status: Resolved Qualifiers: Encounter type: initial encounter Category: Medical Code(s): M62.82 - Rhabdomyolysis (3) Alcohol intoxication Current visit: Yes Status: Acute Qualifiers: Complication of substance-induced condition: with unspecified complication Qualified Code(s): F10.929 - Alcohol use, unspecified with intoxication, unspecified Category: Medical Code(s): F10.929 - Alcohol use, unspecified with intoxication, unspecified (4) Thrombocytopenia Current visit: No Status: Acute Category: Medical Code(s): D69.6 - Thrombocytopenia, unspecified (5) Heart failure with preserved ejection fraction Current visit: Yes Status: Chronic Category: Medical Code(s): I50.30 - Unspecified diastolic (congestive) heart failure (6) Type II diabetes mellitus Current visit: Yes Status: Acute Qualifiers: Diabetes mellitus care home insulin use: unspecified terminal system operator insulin use status Diabetes mellitus complication status: without complication Qualified Code(s): E11.9 - Type 2 diabetes mellitus without complications Category: Medical Code(s): E11.9 - Type 2 diabetes mellitus without complications - Assessment and plan all Dx Assessment and Plan for all problems:: Continue withdrawal protocol. Initiate treatment for conjunctivitis. Continues to require inpatient management for withdrawal symptoms and treatment. repeat labs in the morning
[2018-03-26 06:57] LABS: Albumin Level 1.8 gm/dL (3.4-5.0); Albumin/Globulin Ratio 0.4 (1.1-1.8); Anion Gap 10.7 mEq/L (5-15); Bilirubin,Total 13.9 mg/dL (0.2-1.0); Calcium 7.8 mg/dL (8.5-10.1); Globulin 4.2 gm/dl (1.3-3.2); Phosphorous 2.4 mg/dL (2.4-4.9); Potassium 3.7 mmoL/L (3.5-5.1)
[2018-03-26 08:03] LABS: Basophils # 0.1 K/mm3 (0-0.2); Basophils % 0.7 % (0.1-2.0); Eosinophils # 0.3 K/mm3 (0.0-0.4); Eosinophils % 4.3 % (0.1-12.0); Hematocrit 37.1 % (42.0-52.0); Hemoglobin 12.6 g/dL (14.1-18.0); Lymphocytes # 0.9 K/mm3 (0.7-4.5); Lymphocytes % 14.3 % (10-50); Mean Corpuscular HGB Conc 34.1 g/dL (31.8-35.4); Mean Corpuscular Hemoglobin 36.1 pg (27.0-31.2); Mean Platelet Volume 8.7 fl (7.4-10.4); Monocytes # 0.7 K/mm3 (0.1-1.0); Neutrophils # 4.6 K/mm3 (1.8-7.8); Neutrophils % 69.7 % (37.0-80.0); Platelet Count 58 K/mm3 (142-424); Red Cell Distribution Width 15.6 % (11.5-17.5); White Blood Count 6.6 K/mm3 (4.8-10.8)
--- NOTE | 2018-03-26 08:40 | Progress Note ---
Internal Medicine - PN: Subj *Date: 03/26/18 *Time: 08:38 Interval history: Patient is awake, pleasant. Able to follow commands and respond to questions, but seems very sluggish. Labs and vital signs reviewed. Patient did eat this morning without problems of nausea or heartburn symptoms. Exam Vital signs and Labs for Last 24 Hours: Temp Pulse Resp BP Pulse Ox 98.5 F 104 H 20 147/95 H 96 03/26/18 03:40 03/26/18 03:40 03/26/18 03:40 03/26/18 03:40 03/26/18 03:40 Laboratory Results - last 24 hr 03/26/18 05:40: Sodium 137, Potassium 3.7, Chloride 102, Carbon Dioxide 28, Anion Gap 10.7, BUN 10, Creatinine 0.63 L, Estimated Creat Clear 124, Estimated GFR 134, Est GFR ( Amer) 162 D, Glucose 87, Calcium 7.8 L, Phosphorus 2.4, Magnesium 1.8, Total Bilirubin 13.9 H*, AST 147 H D, ALT 63, Alkaline Phosphatase 211 H, Total Protein 6.0 L, Albumin 1.8 L, Globulin 4.2 H, Albumin/Globulin Ratio 0.4 L 03/26/18 07:51: WBC 6.6, RBC 3.50 L, Hgb 12.6 L, Hct 37.1 L, MCV 106.0 H, MCH 36.1 H, MCHC 34.1, RDW 15.6, Plt Count 58 L, MPV 8.7, Neut % (Auto) 69.7, Lymph % (Auto) 14.3, [place] % (Auto) 11.0 H, Eos % (Auto) 4.3, Baso % (Auto) 0.7, Neut # (Auto) 4.6, Lymph # (Auto) 0.9, [place] # (Auto) 0.7, Eos # (Auto) 0.3, Baso # (Auto) 0.1 I & O for Last 24 hours: Intake & Output 03/23/18 03/24/18 03/25/18 03/26/18 11:59 11:59 11:59 11:59 Intake Total 2814 / 2814 2162 / 2163 2059 Balance 2814 / 2814 2162 / 2162 Weight 275 lb 1 oz 279 lb 280 lb Narrative: Alert. Facial expressions symmetric. Scleral icterus and deep jaundice noted. No JVD. Lungs are clear in the anterior garber. Heart rate regular. Abdomen is soft, no tenderness. No hepatosplenomegaly but obesity limits his exam findings. Old brawny cellulitis on the anterior shins noted. No evidence of active cellulitis. Assessment and Plan (1) Alcoholic hepatitis Current visit: Yes Status: Acute Category: Medical Code(s): K70.10 - Alcoholic hepatitis without ascites (2) Rhabdomyolysis Current visit: Yes Status: Resolved Qualifiers: Encounter type: initial encounter Category: Medical Code(s): M62.82 - Rhabdomyolysis (3) Alcohol intoxication Current visit: Yes Status: Acute Qualifiers: Complication of substance-induced condition: with unspecified complication Qualified Code(s): F10.929 - Alcohol use, unspecified with intoxication, unspecified Category: Medical Code(s): F10.929 - Alcohol use, unspecified with int oxication, unspecified (4) Thrombocytopenia Current visit: No Status: Acute Category: Medical Code(s): D69.6 - Thrombocytopenia, unspecified (5) Heart failure with preserved ejection fraction Current visit: Yes Status: Chronic Category: Medical Code(s): I50.30 - Unspecified diastolic (congestive) heart failure (6) Type II diabetes mellitus Current visit: Yes Status: Acute Qualifiers: Diabetes mellitus rn long term care insulin use: unspecified fdc insulin use status Diabetes mellitus complication status: without complication Qualified Code(s): E11.9 - Type 2 diabetes mellitus without complications Category: Medical Code(s): E11.9 - Type 2 diabetes mellitus without complications - Assessment and plan all Dx Assessment and Plan for all problems:: Withdrawal symptoms seem improved. Continue current protocol. Meld score is 20 this morning given his elevated bilirubin. Plan will be to monitor this tomorrow. Patient will need some type of rehabilitation, possible long-term care given his physical immobility. PT consultation today.
[2018-03-27 06:02] LABS: Basophils # 0.1 K/mm3 (0-0.2); Basophils % 0.9 % (0.1-2.0); Eosinophils # 0.3 K/mm3 (0.0-0.4); Eosinophils % 3.5 % (0.1-12.0); Hematocrit 40.9 % (42.0-52.0); Hemoglobin 13.2 g/dL (14.1-18.0); Lymphocytes # 1.1 K/mm3 (0.7-4.5); Lymphocytes % 14.9 % (10-50); Mean Corpuscular HGB Conc 32.3 g/dL (31.8-35.4); Mean Corpuscular Hemoglobin 34.4 pg (27.0-31.2); Mean Corpuscular Volume 106.5 fl (80-94); Mean Platelet Volume 8.5 fl (7.4-10.4); Monocytes # 0.9 K/mm3 (0.1-1.0); Monocytes % 11.1 % (1.7-9.3); Neutrophils # 5.3 K/mm3 (1.8-7.8); Neutrophils % 69.5 % (37.0-80.0); Platelet Count 84 K/mm3 (142-424); Red Blood Count 3.84 M/mm3 (4.60-6.20); Red Cell Distribution Width 15.9 % (11.5-17.5); White Blood Count 7.6 K/mm3 (4.8-10.8)
[2018-03-27 06:09] LABS: INR 1.4 (0.9-1.1); Prothrombin Time 14.3 seconds (9.4-11.8)
[2018-03-27 06:20] LABS: Albumin Level 1.9 gm/dL (3.4-5.0); Albumin/Globulin Ratio 0.4 (1.1-1.8); Anion Gap 10.9 mEq/L (5-15); Bilirubin,Total 12.7 mg/dL (0.2-1.0); Calcium 8.2 mg/dL (8.5-10.1); Globulin 4.8 gm/dl (1.3-3.2); Potassium 3.9 mmoL/L (3.5-5.1); Total Protein,Serum 6.7 gm/dL (6.4-8.2)
--- NOTE | 2018-03-27 10:06 | Progress Note ---
Internal Medicine - PN: Subj *Date: 03/27/18 *Time: 08:45 Interval history: Ambulating with 2 person assist. Remains hemodynamically stable. No active bleeding or worsening confusion. Patient oriented to person and place, otherwise pleasantly confused. Reportedly has Continued to have 3+ bowel movements daily, though not currently charted. Voiding independently report as well. When seen this morning, ambulating with assistance and walker to bedside chair. Afebrile, hemodynamically stable, no nausea, vomiting, chest pain. Exam Vital signs and Labs for Last 24 Hours: Temp Pulse Resp BP Pulse Ox 98.1 F 105 H 22 128/85 94 L 03/27/18 08:00 03/27/18 08:00 03/27/18 08:00 03/27/18 08:00 03/27/18 08:00 Laboratory Results - last 24 hr 03/27/18 05:45: WBC 7.6, RBC 3.84 L, Hgb 13.2 L, Hct 40.9 L, MCV 106.5 H, MCH 34.4 H, MCHC 32.3, RDW 15.9, Plt Count 84 L D, MPV 8.5, Neut % (Auto) 69.5, Lymph % (Auto) 14.9, [place] % (Auto) 11.1 H, Eos % (Auto) 3.5, Baso % (Auto) 0.9, Neut # (Auto) 5.3, Lymph # (Auto) 1.1, [place] # (Auto) 0.9, Eos # (Auto) 0.3, Baso # (Auto) 0.1 03/27/18 05:45: Sodium 135 L, Potassium 3.9, Chloride 102, Carbon Dioxide 26, Anion Gap 10.9, BUN 9, Creatinine 0.76 D, Estimated Creat Clear 103, Estimated GFR 108, Est GFR ( Amer) 130, Glucose 96, Calcium 8.2 L, Total Bilirubin 12.7 H*, AST 130 H, ALT 63, Alkaline Phosphatase 216 H, Total Protein 6.7, Albumin 1.9 L, Globulin 4.8 H, Albumin/Globulin Ratio 0.4 L 03/27/18 05:45: PT 14.3 H, INR 1.40 H I & O for Last 24 hours: Intake & Output 03/24/18 03/25/18 03/26/18 03/27/18 23:59 23:59 23:59 23:59 Intake Total 3257 / 3257 795 / 795 2705 / 2705 120 / 120 Balance 3257 / 3257 795 / 795 2705 / 2705 120 / 120 Weight 124.766 kg 126.552 kg 127.006 kg 126.099 kg Narrative: Alert. Facial expressions symmetric. Conjunctivitis improving, no matting of eyes this morning. Stable scleral icterus and deep jaundice noted. No JVD. Lungs are clear in the anterior garber. Heart rate regular. Abdomen is soft, no tenderness. No hepatosplenomegaly but obesity limits his exam Old brawny cellulitis and venous stasis dermatitis on the anterior shins noted. No evidence of active cellulitis. 3+ edema to shins bilateral lower extremities Assessment and Plan (1) Alcoholic hepatitis Current visit: Yes Status: Acute Category: Medical Code(s): K70.10 - Alcoholic hepatitis without ascites Continuing CIWA scoring. Transitioned to as needed oxazepam every 6 hours as needed for C was scores above 6. -Patient with no interval change from yesterday. Condition continues to be tenuous. At this time awaiting improvement in liver function and bilirubin as we continue treatment to hold withdrawal, hepatitis, hepatic encephalopathy. (2) Rhabdomyolysis Current visit: Yes Status: Resolved Qualifiers: Encounter type: initial encounter Category: Medical Code(s): M62.82 - Rhabdomyolysis (3) Alcohol intoxication Current visit: Yes Status: Resolved Qualifiers: Complication of substance-induced condition: with unspecified complication Qualified Code(s): F10.929 - Alcohol use, unspecified with intoxication, unspecified Category: Medical Code(s): F10.929 - Alcohol use, unspecified with intoxication, unspecified (4) Thrombocytopenia Current visit: No Status: Acute Category: Medical Code(s): D69.6 - Thrombocytopenia, unspecified (5) Heart failure with preserved ejection fraction Current visit: Yes Status: Chronic Category: Medical Code(s): I50.30 - Unspecified diastolic (congestive) heart failure (6) Type II diabetes mellitus Current visit: Yes Status: Acute Qualifiers: Diabetes mellitus director of nurses registry insulin use: unspecified detention insulin use status Diabetes mellitus complication status: without complication Qualified Code(s): E11.9 - Type 2 diabetes mellitus without complications Category: Medical Code(s): E11.9 - Type 2 diabetes mellitus without complications (7) Hepatic encephalopathy Current visit: Yes Status: Acute Category: Medical Code(s): K72.90 - Hepatic failure, unspecified without coma Patient can have signs of encephalopathy with altered mental status, slower months. Oriented to person and place however delayed recall present on exam. Asterixis improved. Continuing lactulose with goal of 2-3 loose stools a day. While it is reported that the patient had 3+ stools in the past 24 hours, review of chart does not concur with this report. Continue to monitor through the day with 20 mg of lactulose as needed every 6 hours for goal of 2-3 bowel movements. - Assessment and plan all Dx Assessment and Plan for all problems:: Patient's condition continues to be tenuous. Continues to require inpatient management. If no improvement or symptoms worsen may require transfer to transplant center for evaluation, even though an unlikely candidate, with resources including a terrazzo roller.
[2018-03-27 16:22] LABS: Microscopic, Urine URINE MICROSCOPIC (MICROSCOPIC)
[2018-03-27 16:26] LABS: Appearance,Urine CLEAR (Clear); Blood, Urine Negative (Negative); Color,Urine YELLOW (Yellow); Glucose,Urine (UA) Negative (Negative); Ketones,Urine TRACE (Negative); Leukocyte Esterase,Urine Negative (Negative); PH,Urine 8.5 (5.0-8.5); Protein,Urine Negative (Negative); Specific Gravity, Urine 1.015 (1.005-1.030)
[2018-03-27 16:32] LABS: Amphetamine/Metha Screen,Urine Negative ng/mL (<1000); Barbiturates Screen,Urine Negative ng/mL (<200); Benzodiazepines Screen,Urine Positive ng/mL (<200); Cannabinoid Screen,Urine Negative ng/mL (<50); Cocaine Screen,Urine Negative ng/mL (<300); Methadone Screen,Urine Negative ng/mL (<300); Opiate Screen,Urine Negative ng/mL (<300); Phencyclidine Screen,Urine Negative ng/mL (<25)
[2018-03-27 16:39] LABS: Bacteria,Urine Trace /lpf; Squamous Epithelial Cell,Urine Occasional #/hpf (0-5); WBC,Urine Occasional #/hpf (0-3)
[2018-03-27 16:40] LABS: Bilirubin,Urine 3+ (Negative)
[2018-03-28 06:07] LABS: Basophils % 0.5 % (0.1-2.0); Eosinophils # 0.2 K/mm3 (0.0-0.4); Eosinophils % 2.2 % (0.1-12.0); Hematocrit 37.1 % (42.0-52.0); Hemoglobin 11.9 g/dL (14.1-18.0); Lymphocytes # 1.1 K/mm3 (0.7-4.5); Lymphocytes % 15.2 % (10-50); Mean Corpuscular Hemoglobin 34.4 pg (27.0-31.2); Mean Corpuscular Volume 107.3 fl (80-94); Mean Platelet Volume 8.4 fl (7.4-10.4); Monocytes # 0.8 K/mm3 (0.1-1.0); Monocytes % 11.9 % (1.7-9.3); Neutrophils # 4.9 K/mm3 (1.8-7.8); Neutrophils % 70.1 % (37.0-80.0); Platelet Count 79 K/mm3 (142-424); Red Blood Count 3.45 M/mm3 (4.60-6.20); Red Cell Distribution Width 16.2 % (11.5-17.5)
[2018-03-28 06:29] LABS: Albumin Level 1.6 gm/dL (3.4-5.0); Albumin/Globulin Ratio 0.4 (1.1-1.8); Anion Gap 10.6 mEq/L (5-15); Bilirubin,Total 9.8 mg/dL (0.2-1.0); Calcium 8.1 mg/dL (8.5-10.1); Globulin 4.4 gm/dl (1.3-3.2); Potassium 3.6 mmoL/L (3.5-5.1)
--- NOTE | 2018-03-28 08:55 | Progress Note ---
Internal Medicine - PN: Subj *Date: 03/28/18 *Time: 08:52 Interval history: Patient is pleasant and talkative when talked to, but is sleepy and does not offer spontaneous conversation. He has had multiple bowel movements after lactulose started. He has no complaints. Exam Vital signs and Labs for Last 24 Hours: Temp Pulse Resp BP Pulse Ox 98.6 F 107 H 20 155/85 H 96 03/28/18 08:00 03/28/18 08:00 03/28/18 08:00 03/28/18 08:00 03/28/18 08:00 Laboratory Results - last 24 hr 03/27/18 16:20: Urine Color Yellow, Urine Appearance Clear, Urine pH 8.5, Ur Specific [place] 1.015, Urine Protein Negative, Urine Glucose (UA) Negative, Urine Ketones Trace, Urine Blood Negative, Urine Nitrate Negative, Urine Bilirubin 3+ A, Urine Urobilinogen 4.0, Ur Leukocyte Esterase Negative, Urine RBC None, Urine WBC Occasional, Ur Squamous Epith Cells Occasional, Urine Bacteria Trace 03/27/18 16:20: Urine Opiates Screen Negative, Urine Methadone Screen Negative, Ur Barbituates Screen Negative, Ur Phencyclidine Scrn Negative, Ur Amphetamines Screen Negative, U Benzodiazepines Scrn Positive H, Urine Cocaine Screen Negative, U Marijuana (THC) Screen Negative 03/28/18 05:45: WBC 7.0, RBC 3.45 L, Hgb 11.9 L, Hct 37.1 L, MCV 107.3 H, MCH 34.4 H, MCHC 32.0, RDW 16.2, Plt Count 79 L, MPV 8.4, Neut % (Auto) 70.1, Lymph % (Auto) 15.2, [place] % (Auto) 11.9 H, Eos % (Auto) 2.2, Baso % (Auto) 0.5, Neut # (Auto) 4.9, Lymph # (Auto) 1.1, [place] # (Auto) 0.8, Eos # (Auto) 0.2, Baso # (Auto) 0.0 03/28/18 05:45: Sodium 136, Potassium 3.6, Chloride 103, Carbon Dioxide 26, Anion Gap 10.6, BUN 11, Creatinine 0.89, Estimated Creat Clear 88, Estimated GFR 90, Est GFR ( Amer) 109, Glucose 143 H D, Calcium 8.1 L, Magnesium 1.7, Total Bilirubin 9.8 H, AST 107 H, ALT 54, Alkaline Phosphatase 190 H, Total Protein 6.0 L, Albumin 1.6 L D, Globulin 4.4 H, Albumin/Globulin Ratio 0.4 L I & O for Last 24 hours: Intake & Output 03/25/18 03/26/18 03/27/18 03/28/18 11:59 11:59 11:59 11:59 Intake Total 2163 / 2163 2300 / 2300 600 / 600 900 / 900 Output Total 300 / 300 Balance 2163 / 2163 2300 / 2300 600 / 600 600 / 600 Weight 279 lb 280 lb 278 lb 284 lb 4 oz Narrative: Patient is still deeply jaundiced, responsive to conversation and tactile stimuli. Good air movement. Clear anterior lung garber, heart rate regular. Abdomen is soft and nontender. His extremities continue to have lymphedema and some brawny stasis dermatitis related cellulitis in the lower extremities. Assessment and Plan (1) Alcoholic hepatitis Current visit: Yes Status: Acute Category: Medical Code(s): K70.10 - Alcoholic hepatitis without ascites (2) Rhabdomyolysis Current visit: Yes Status: Resolved Qualifiers: Encounter type: initial encounter Category: Medical Code(s): M62.82 - Rhabdomyolysis (3) Alcohol intoxication Current visit: Yes Status: Resolved Qualifiers: Complication of substance-induced condition: with unspecified complication Qualified Code(s): F10.929 - Alcohol use, unspecified with intoxication, unspecified Category: Medical Code(s): F10.929 - Alcohol use, unspecified with intoxication, unspecified (4) Thrombocytopenia Current visit: No Status: Acute Category: Medical Code(s): D69.6 - Thrombocytopenia, unspecified (5) Heart failure with preserved ejection fraction Current visit: Yes Status: Chronic Category: Medical Code(s): I50.30 - Unspecified diastolic (congestive) heart failure (6) Type II diabetes mellitus Current visit: Yes Status: Acute Qualifiers: Diabetes mellitus director long term care insulin use: unspecified director long term care insulin use status Diabetes mellitus complication status: without complication Qualified Code(s): E11.9 - Type 2 diabetes mellitus without complications Category: Medical Code(s): E11.9 - Type 2 diabetes mellitus without complications (7) Hepatic encephalopathy Current visit: Yes Status: Acute Category: Medical Code(s): K72.90 - Hepatic failure, unspecified without coma - Assessment and plan all Dx Assessment and Plan for all problems:: Patient's bilirubin has improved. Hopefully this will continue with continued lactulose administration, cessation of alcohol and supportive care. Patient is not a candidate for transfer to a tertiary care center at this point given his slight improvement and lack of being a candidate for invasive procedures/transplant at this point. Plan will be to continue supportive care. He will definitely need skilled care for PT/alcohol avoidance once his labs have improved, anticipate him being here for the next 3-4 days monitoring labs, monitoring cardiac status and transfer to skilled care for PT in the next 5-6 days.
[2018-03-29 06:45] LABS: Basophils % 0.5 % (0.1-2.0); Eosinophils # 0.1 K/mm3 (0.0-0.4); Eosinophils % 2.1 % (0.1-12.0); Hematocrit 37.4 % (42.0-52.0); Hemoglobin 11.8 g/dL (14.1-18.0); Lymphocytes # 1.1 K/mm3 (0.7-4.5); Lymphocytes % 17.1 % (10-50); Mean Corpuscular HGB Conc 31.5 g/dL (31.8-35.4); Mean Corpuscular Hemoglobin 33.8 pg (27.0-31.2); Mean Corpuscular Volume 107.3 fl (80-94); Mean Platelet Volume 8.3 fl (7.4-10.4); Monocytes # 0.9 K/mm3 (0.1-1.0); Monocytes % 13.3 % (1.7-9.3); Neutrophils # 4.5 K/mm3 (1.8-7.8); Neutrophils % 67.1 % (37.0-80.0); Platelet Count 76 K/mm3 (142-424); Red Blood Count 3.49 M/mm3 (4.60-6.20); Red Cell Distribution Width 16.9 % (11.5-17.5); White Blood Count 6.7 K/mm3 (4.8-10.8)
--- NOTE | 2018-03-29 08:58 | Progress Note ---
Internal Medicine - PN: Subj *Date: 03/29/18 *Time: 07:50 Interval history: Patient is resting in bed, states "I feel pretty good." Tolerating oral intake without abdominal pain or nausea. Alert and oriented x3, with episodes of confusion. Pleasant, cooperative, very slow to answer questions. Rate and rhythm regular. Abdomen firm, distended, nontender. 3= BLE edema with chronic anterior grijalva skin changes, pulses difficult to palpate through edema. Exam Vital signs and Labs for Last 24 Hours: Temp Pulse Resp BP Pulse Ox 98.8 F 99 H 17 135/67 95 03/29/18 07:45 03/29/18 07:45 03/29/18 07:45 03/29/18 07:45 03/29/18 07:45 Laboratory Results - last 24 hr 03/29/18 06:15: WBC 6.7, RBC 3.49 L, Hgb 11.8 L, Hct 37.4 L, MCV 107.3 H, MCH 33.8 H, MCHC 31.5 L, RDW 16.9, Plt Count 76 L, MPV 8.3, Neut % (Auto) 67.1, Lymph % (Auto) 17.1, [place] % (Auto) 13.3 H, Eos % (Auto) 2.1, Baso % (Auto) 0.5, Neut # (Auto) 4.5, Lymph # (Auto) 1.1, [place] # (Auto) 0.9, Eos # (Auto) 0.1, Baso # (Auto) 0.0 I & O for Last 24 hours: Intake & Output 03/26/18 03/27/18 03/28/18 03/29/18 11:59 11:59 11:59 11:59 Intake Total 2300 / 2300 600 / 600 900 / 900 1470 / 1470 Output Total 300 / 300 700 / 700 Balance 2300 / 2300 600 / 600 600 / 600 770 / 770 Weight 280 lb 278 lb 284 lb 4 oz 281 lb 7 oz Assessment and Plan (1) Alcoholic hepatitis Current visit: Yes Status: Acute Category: Medical Code(s): K70.10 - Alcoholic hepatitis without ascites (2) Rhabdomyolysis Current visit: Yes Status: Resolved Qualifiers: Encounter type: initial encounter Category: Medical Code(s): M62.82 - Rhabdomyolysis (3) Alcohol intoxication Current visit: Yes Status: Resolved Qualifiers: Complication of substance-induced condition: with unspecified complication Qualified Code(s): F10.929 - Alcohol use, unspecified with intoxication, unspecified Category: Medical Code(s): F10.929 - Alcohol use, unspecified with intoxication, unspecified (4) Thrombocytopenia Current visit: No Status: Acute Category: Medical Code(s): D69.6 - Thrombocytopenia, unspecified (5) Heart failure with preserved ejection fraction Current visit: Yes Status: Chronic Category: Medical Code(s): I50.30 - Unspecified diastolic (congestive) heart failure (6) Type II diabetes mellitus Current visit: Yes Status: Acute Qualifiers: Diabetes mellitus usp insulin use: unspecified termite control service representative insulin use status Diabetes mellitus complication status: without complication Qualified Code(s): E11.9 - Type 2 diabetes mellitus without complications Category: Medical Code(s): E11.9 - Type 2 diabetes mellitus without complications (7) Hepatic encephalopathy Current visit: Yes Status: Acute Category: Medical Code(s): K72.90 - Hepatic failure, unspecified without coma - Assessment and plan all Dx Assessment and Plan for all problems:: Labs slowly improving. No change in plan of care today. Will recheck labs in the am and consider d/c to LTC facility for skilled therapy tomorrow.
[2018-03-30 06:54] LABS: Basophils % 0.6 % (0.1-2.0); Eosinophils # 0.1 K/mm3 (0.0-0.4); Eosinophils % 1.8 % (0.1-12.0); Hematocrit 37.9 % (42.0-52.0); Hemoglobin 12.3 g/dL (14.1-18.0); Lymphocytes # 0.9 K/mm3 (0.7-4.5); Lymphocytes % 15.3 % (10-50); Mean Corpuscular HGB Conc 32.4 g/dL (31.8-35.4); Mean Corpuscular Hemoglobin 35.2 pg (27.0-31.2); Mean Corpuscular Volume 108.7 fl (80-94); Mean Platelet Volume 8.2 fl (7.4-10.4); Monocytes # 1.1 K/mm3 (0.1-1.0); Monocytes % 17.9 % (1.7-9.3); Neutrophils # 3.8 K/mm3 (1.8-7.8); Neutrophils % 64.4 % (37.0-80.0); Platelet Count 75 K/mm3 (142-424); Red Blood Count 3.48 M/mm3 (4.60-6.20); Red Cell Distribution Width 17.4 % (11.5-17.5); White Blood Count 5.9 K/mm3 (4.8-10.8)
[2018-03-30 07:04] LABS: Albumin Level 1.6 gm/dL (3.4-5.0); Albumin/Globulin Ratio 0.4 (1.1-1.8); Anion Gap 11.5 mEq/L (5-15); Bilirubin,Total 8.3 mg/dL (0.2-1.0); Calcium 8.3 mg/dL (8.5-10.1); Globulin 4.3 gm/dl (1.3-3.2); Potassium 3.5 mmoL/L (3.5-5.1); Total Protein,Serum 5.9 gm/dL (6.4-8.2)
--- NOTE | 2018-03-30 08:34 | Discharge Summary ---
General - General Admission date:: 03/23/18 Discharge date: 03/30/18 HPI HPI: Mr. Camacho is a 52-year-old male who was brought in by his nephew due to concern for alcohol intoxication and withdrawal. Past medical history for CHF and diabetes. Patient reports he drinks approximately 12 beers a day however blood alcohol level on presentation approximately 350 concerning for significantly larger oral intake daily. She will assessment in the ER with concern for withdrawal symptoms, intoxication, liver injury, elevated CK. Initiated withdrawal protocol and received a rally pack, IV fluids, loading dose of oxazepam. Admitted to medicine for further management. Patient this morning eating breakfast on assessment. Reports his an alcoholic that is struggled with recovery in the past currently in AA however fell off the wagon about 6 months ago. Has never had withdrawal symptoms, seizures, DTs per his report. Denies chest pain, palpitations, shortness of breath. Reports some mild confusion. Denies any abdominal pain or nausea. Noted to be quite shaky during interview. Review of patient's CIWA scores overnight have scores of 11 and 14. Currently receiving scheduled oxazepam of 30 mg however still having impressive scores. Hospital Course Hospital Course: Patient was admitted for acute alcohol intoxication and acute hepatic injury with high likelihood of cirrhosis. He was treated with IV fluids, benzodiazepines for acute alcohol withdrawal and supportive care with nutritional infusions of rally pack and thiamine. Patient did not require atypical antipsychotics, and was able to quickly wean down on his oxazepam and has not used any as needed doses over the past couple of days. Significant bilirubin elevations were noted, once lactulose was started and excellent bowel movements were initiated patient's bilirubin has declined on a daily basis. His LFTs have also declined. Patient is unable to care for himself because of significant weakness and cognitive slowing-and although this has improved her physical therapist believe that he requires skilled care for twice daily physical therapy sessions for at least the next 6-8 weeks. As a result, patient will be transferred to skilled care facility for ongoing physical therapy, lab monitoring and personal care issues. Please note the patient will need a CMP and CBC weekly to track his bilirubin and liver function testing trends. He will also require as needed diazepam, prescription has been printed and sent with patient. Patient will also require evaluation with hepatology-as of now no appointment has been made as patient will be closer to the [place] area and I would recommend appointment with [facility] gastroenterology. Obviously, patient will be on a completely alcohol free diet and this is another reason why he needs to be in a skilled care facility for monitoring. Objective Vital signs: Temp Pulse Resp BP Pulse Ox 98.6 F 88 16 120/63 93 L 03/30/18 08:00 03/30/18 08:00 03/30/18 08:00 03/30/18 08:00 03/30/18 08:00 Narrative: Patient is awake, responsive, is oriented, is cognitively slowed but is able to respond to coming decisions. Deeply jaundiced but slightly improved since admission. Anterior lung garber are clear, heart rate regular. Abdomen is soft, obese. His morbid obesity limits his exam accuracy and complicates all aspects of his care. He has no peripheral edema. He has no other skin rash, except for anterior grijalva brawny cellulitis which we are treating with mupirocin ointment 3 times daily and wrapping. He is able to move his extremities well. Cranial nerves are intact. Results Labs on day of discharge: Labs from last 24 hours 03/30/18 03/30/18 06:05 06:05 WBC 5.9 RBC 3.48 L Hgb 12.3 L Hct 37.9 L MCV 108.7 H MCH 35.2 H MCHC 32.4 RDW 17.4 Plt Count 75 L MPV 8.2 Neut % (Auto) 64.4 Lymph % (Auto) 15.3 [place] % (Auto) 17.9 H Eos % (Auto) 1.8 Baso % (Auto) 0.6 Neut # (Auto) 3.8 Lymph # (Auto) 0.9 [place] # (Auto) 1.1 H Eos # (Auto) 0.1 Baso # (Auto) 0.0 Sodium 137 Potassium 3.5 Chloride 103 Carbon Dioxide 26 Anion Gap 11.5 BUN 8 D Creatinine 0.81 Estimated Creat Clear 96 Estimated GFR 100 Est GFR ( Amer) 121 Glucose 99 Calcium 8.3 L Total Bilirubin 8.3 H AST 92 H ALT 50 Alkaline Phosphatase 173 H Total Protein 5.9 L Albumin 1.6 L Globulin 4.3 H Albumin/Globulin Ratio 0.4 L DS: Diagnosis - Discharge Diagnosis (1) Alcoholic hepatitis Status: Acute (2) Rhabdomyolysis Status: Resolved (3) Alcohol intoxication Status: Resolved (4) Thrombocytopenia Status: Acute (5) Heart failure with preserved ejection fraction Status: Chronic (6) Type II diabetes mellitus Status: Chronic (7) Hepatic encephalopathy Status: Chronic Discharge Plan - Patient Discharge Instructions ACTIVITY: Continue current activity DIET: continue same diet Patient Instructions: Alcoholic Hepatitis (Alternative Therapy), Type 2 Diabetes, Cirrhosis, Hepatic Encephalopathy, DI for Drug or Alcohol Withdrawal - Follow up Plan Disposition: [facility] Home Medications: Home Medications Medication Instructions Recorded Confirmed Type Ferrous Sulfate 325 mg PO DAILY 09/09/17 03/24/18 History Fluticasone Propionate [Flonase 2 spr NS DAILY 09/09/17 03/24/18 History 50mcg nasal spray 16gm] Furosemide [Furosemide 40MG tAB] 40 mg PO DAILY 09/09/17 03/24/18 History Magnesium Oxide [Mag-Ox 400mg Tab] 400 mg PO DAILY 09/09/17 03/24/18 History Oxazepam [Serax 10mg Capsule] 10 mg PO TID PRN 09/09/17 03/24/18 History Pantoprazole Sodium [Pantoprazole 40 mg PO DAILY 09/09/17 03/24/18 History 20mg Tab] Sertraline HCl 25 mg PO DAILY 09/09/17 03/24/18 History Albuterol Sulfate [Albuterol HFA 2 puffs INHALATION Q6HP PRN 03/23/18 03/23/18 History Inhaler] Montelukast Sodium 5 mg PO DAILY 03/23/18 03/24/18 History Spironolactone 100 mg PO HS 03/24/18 03/26/18 History Spironolactone 150 mg PO DAILY 03/24/18 03/26/18 History Prescriptions/Medication Reconciliation: New diazePAM [Valium] 2 mg PO TIDP PRN #30 tab PRN Reason: Alcohol Withdrawal Lactulose [Chronulac 20gm/30mL UDC] 20 gm PO TID 30 Days udc Continue Ferrous Sulfate 325 mg PO DAILY Magnesium Oxide [Mag-Ox 400mg Tab] 400 mg PO DAILY Pantoprazole Sodium [Pantoprazole 20mg Tab] 40 mg PO DAILY Montelukast Sodium 5 mg PO DAILY Spironolactone 150 mg PO DAILY Spironolactone 100 mg PO HS Fluticasone Propionate [Flonase 50mcg nasal spray 16gm] 2 spr NS DAILY Albuterol Sulfate [Albuterol HFA Inhaler] 2 puffs INHALATION Q6HP PRN PRN Reason: SOA Discontinued Furosemide [Furosemide 40MG tAB] 40 mg PO DAILY Oxazepam [Serax 10mg Capsule] 10 mg PO TID PRN PRN Reason: Anxiety Sertraline HCl 25 mg PO DAILY
== END 2018-03-30 14:24 ==
LOC: ER 17:26 → 2ND 17:26 → OBSVTOIN 21:20 → 2ND 21:21
PROVIDERS: ADMIT Family Medicine; ATTEND Internal Medicine Adolescent Medicine